=== PATIENT | female | born 1995 | race African-American/Black ===

== ENCOUNTER 2024-07-28 23:55 | Emergency (ER) | payer OTHER ==
--- OUTSIDE RECORDS SUMMARY | 2024-07-29 | XMS REPORT | Continuity of Care Document ---
Author Name Unknown Address [address] [place] [address] [facility] [place] Address [address] [place] [address] Care Team Providers Care Manager Intern Name Role Phone Pcp, Patient Does Not Have A Primary Care Physic manjinder DEYA KHAN Attending Clinician Unavailable CHELSY VALDERRAMA Attending Clinician Unavailab LUPE Haji Attending Clinician UnaDERRICK Garcia Attending Clinician Unavailable LAB47 Attending Clinician Unavailable DEBRA VILLARREAL Attending Clinician Unavailabl e LAB90 Attending Clinician Unavailable Vaccine, Ang Db Cbc Fam Attending Clinician Unav Jennifer Anderson MD Attending Clinician + [phone] JENNIFER PRATT Attending Clinician Avinash brush Doctor Unassigned, [place] Attending Clinician U rosina Palm MD, Lupe Brewer Attending Clinician +[phone] IVELISSE VILLARREAL Attending Clinician Unavail able Syed Carlos Attending Clinician + [phone] [facility] Attending [facility]ician Un available Chelsy Gutierrez Attending Clinician +[phone] Payers Payer Name Policy Type Policy Number Effective Date Expirati on Date Source [facility]VIGATE/POS 3 [id number] 2024 00:00:00 HEALTHSMART-90 DEGREE BENEFIT 2 [id number] 2022 00:00:00 TRS BLUE ESSENTIALS CAPITATED PRIMARY 9 [id number] 2020 00:00:00 BCBS-ESSENTIALS 2 [id number] 2020 00:00:00 AGENCY GENERIC [id number] 2016 00:00:00 AETNA TRS CARE [id number] 2019 00:00:00 Problems Condition Name Condition Details Condition Category Status Onset Date Resolution Date Last Treatment Date Treating Clinician Comments Source Abnormal electrocar diogram (ECG) (EKG) Abnormal electrocar diogram (ECG) (EKG) Disease Active 07-14 00:00: 00 Charlee Seybold - Externa l Family history of CHF (congestiv e heart failure) Family history of CHF (congestiv e heart failure) Disease Active 07-14 00:00: 00 Charlee Seybold - Externa l Gastroesop hageal reflux disease Gastroesop hageal reflux disease Disease Active 07-14 00:00: 00 Charlee Seybold - Externa l Hiatal hernia Hiatal hernia Disease Active 05-19 00:00: 00 Charlee Seybold - Externa l Chronic upper abdominal pain - Not Controlled Chronic upper abdominal pain - Not Controlled Disease Active 12-18 00:00: 00 Charlee Seybold - Externa l Gastritis Gastritis Disease Active Sundeep samantha Seybold - Externa l No known active problems No known active problems Disease [facility] Allergies, Adverse Reactions, Alerts Allergy Name Allergy Type Status Severity Reaction(s) Onset Date Inactive Date Treating Clinician Comments Source NO KNOWN ALLERGIE S Drug Class Active [facility] Social History Social Habit Start Date Stop Date Quantity Comments Source ASSERTION Not Charlee Scott - External Gender identity Kaley Scott - External [facility] Alcoholic beverage intake 2024-07-14 00:00:00 2024-07-14 00:00:00 Current drinker of alcohol (finding) Charlee Scott - External Alcohol intake 2022-12-06 00:00:00 2022-12-06 00:00:00 Current drinker of alcohol (finding) Charlee Scott - External Alcohol Comment 2022-12-06 00:00:00 2022-12-06 00:00:00 occ Charlee Scott - External Tobacco use and exposure 2022-12-06 00:00:00 2022-12-06 00:00:00 Smokeless tobacco non-user Charlee Scott - External Exposure to SARS-CoV-2 (event) 2021-10-20 00:00:00 2021-10-30 14:55:00 Not sure [facility] Sex 2020-12-15 10:06:14 2020-12-15 10:06:14 Female (finding) Charlee Scott - External History of Social function 2020-01-01 00:00:00 2020-01-01 00:00:00 [facility] Sex assigned at 1995 00:00:00 1995 00:00:00 Charlee Scott - External Smoking Status Start Date Stop Date Source Never smoked tobacco Charlee Scott - External Medications Ordered Medication Name Filled Medication Name Start Date Stop Date Current Medication? Ordering Clinician Indication Dosage Frequency Signature (SIG) Comments Components Source Omeprazole 20 MG oral Delayed Release Capsule 07-14 00:00: 00 Yes [id number] 20mg QD Take 1 capsule (20 mg total) by mouth daily. Charlee colbert Pantoprazol e Sodium 40 MG oral Tablet Delayed Response 09-19 00:00: 00 11-30 00:00 :00 No [id number] 40mg QD Take 1 tablet (40 mg total) by mouth daily Charlee colbert Pantoprazol e Sodium 40 MG oral Tablet Delayed Response 2021-05 00:00: 00 Yes [id number] TAKE 1 TABLET BY MOUTH EVERY DAY Charlee colbert Ketorolac Tromethamin e (TORADOL) 30 mg/mL 09-24 21:30: 00 09-24 21:30 :00 No [id number] 30mg Charlee Cardenasbonidaisy methylPREDN ISolone 4 MG oral Tablet Therapy Pack 09-24 00:00: 00 Yes [id number] 1{conor} Take 1 conor by mouth See Admin Instructio ns Use as directed Charlee Cardenasbonidaisy Cyclobenzap rine HCl 5 MG oral Tablet 09-24 00:00: 00 07-14 00:00 :00 No [id number] 5mg [id number] 3D Take 1 tablet (5 mg total) by mouth 3 times daily as needed for muscle spasms Charlee Scott - Externa l methylPREDN ISolone 4 MG oral Tablet Therapy Pack 09-24 00:00: 00 12-06 00:00 :00 No [id number] 1{conor} Take 1 conor by mouth See Admin Instructio ns Use as directed Charlee colbert Pantoprazol e Sodium 40 MG oral Tablet Delayed Response 4-15 00:00: 00 Yes [id number] 40mg Take 1 tablet (40 mg total) by mouth daily Charlee Scott Pantoprazol e Sodium 40 MG oral Tablet Delayed Response 2-15 00:00: 00 Yes [id number] TAKE 1 TABLET BY MOUTH EVERY DAY Charlee Scott No known medications 12-31 12:35: 56 No [facility] MICROGESTIN FE 1/20 1 mg-20 mcg (21)/75 mg (7) tablet 2015-05 006 00:00: 00 12-31 00:00 :00 No Univers [facility] No known medications No Un lucina [facility] Immunizations Ordered Immunization Name Filled Immunization Name Date Status Comments Source SARS-COV-2 COVID-19 PFIZER AYAKA-SUCROSE VACCINE (LEWIS TOP) 2021-10-30 00:00:00 Completed [facility] SARS-COV-2 COVID-19 PFIZER VACCINE 2020-11-03 00:00:00 Completed [facility] SARS-COV-2 COVID-19 PFIZER VACCINE 2020-11-03 00:00:00 Completed [facility] SARS-COV-2 COVID-19 PFIZER VACCINE 2020-10-13 00:00:00 Completed [facility] SARS-COV-2 COVID-19 PFIZER VACCINE 2020-10-13 00:00:00 Completed [facility] Tdap- (Boostrix, Adacel) 2016-02-27 00:00:00 Completed Charlee Seybold - External Tdap- (Boostrix, Adacel) 2016-02-27 00:00:00 Completed Charlee Seybold - External Tdap- (Boostrix, Adacel) 2016-02-27 00:00:00 Completed Charlee Seybold Tdap- (Boostrix, Adacel) 2016-02-27 00:00:00 Completed Charlee Seybold TDAP 2016-02-27 00:00:00 Completed [facility] TDAP 2016-02-27 00:00:00 Completed [facility] TDAP 2016-02-27 00:00:00 Completed [facility] TDAP 2016-02-27 00:00:00 Completed [facility] Meningococcal Vaccine- Conjugate(Menactra) 2011-11-01 00:00:00 Completed Charlee Seybold - External Meningococcal Vaccine- Conjugate(Menactra) 2011-11-01 00:00:00 Completed Charlee Seybold - External Meningococcal Vaccine- Conjugate(Menactra) 2011-11-01 00:00:00 Completed Charlee Seybold Meningococcal Vaccine- Conjugate(Menactra) 2011-11-01 00:00:00 Completed Charlee Cardenasybold Tdap- (Boostrix, Adacel) 2007-02-11 00:00:00 Completed Charlee Seybold - External Tdap- (Boostrix, Adacel) 2007-02-11 00:00:00 Completed Charlee Seybold - External Tdap- (Boostrix, Adacel) 2007-02-11 00:00:00 Completed Charlee Seybold Tdap- (Boostrix, Adacel) 2007-02-11 00:00:00 Completed Charlee Seybold Varicella Vaccine 2005-11-07 00:00:00 Completed Charlee Seybold - External Varicella Vaccine 2005-11-07 00:00:00 Completed Charlee Seybold - External Varicella Vaccine 2005-11-07 00:00:00 Completed Charlee Seybold Varicella Vaccine 2005-11-07 00:00:00 Completed Charlee Collinsold DTaP Unspecified 1997-02-14 00:00:00 Completed Charlee Cardenasybold - External MMR- Measles, Mumps, Rubella 1997-02-14 00:00:00 Completed Charlee ybold - External OPV- Oral Polio Vaccine 1997-02-14 00:00:00 Completed Charlee Cardenasybold - External DTaP Unspecified 1997-02-14 00:00:00 Completed Charlee Seybold - External DTaP Unspecified 1997-02-14 00:00:00 Completed Charlee Cardenasybold MMR- Measles, Mumps, Rubella 1997-02-14 00:00:00 Completed Charlee Seybold - External OPV- Oral Polio Vaccine 1997-02-14 00:00:00 Completed Charlee Seybold - External MMR- Measles, Mumps, Rubella 1997-02-14 00:00:00 Completed Charlee Seybold OPV- Oral Polio Vaccine 1997-02-14 00:00:00 Completed Charlee Cardenasybold DTaP Unspecified 1997-02-14 00:00:00 Completed Charlee Cardenasybold MMR- Measles, Mumps, Rubella 1997-02-14 00:00:00 Completed Charlee Seybold OPV- Oral Polio Vaccine 1997-02-14 00:00:00 Completed Charlee Cardenasybold MMR- Measles, Mumps, Rubella 1995-03-13 00:00:00 Completed Charlee Cardenasybold - External MMR- Measles, Mumps, Rubella 1995-03-13 00:00:00 Completed Charlee Seybold - External MMR- Measles, Mumps, Rubella 1995-03-13 00:00:00 Completed Charlee Cardenasybold MMR- Measles, Mumps, Rubella 1995-03-13 00:00:00 Completed Charlee Cardenasybold DTP- Diphtheria,Tetanus, Pertussis 1994-08-24 00:00:00 Completed Charlee Cardenasybold - External DTP- Diphtheria,Tetanus, Pertussis 1994-08-24 00:00:00 Completed Charlee Cardenasybold - External DTP- Diphtheria,Tetanus, Pertussis 1994-08-24 00:00:00 Completed Charlee Cardenasybold DTP- Diphtheria,Tetanus, Pertussis 1994-08-24 00:00:00 Completed Charlee Cardenasybold DPT/HIB 1994-04-11 00:00:00 Completed Charlee Scott - External Hepatitis B, Unspecified 1994-04-11 00:00:00 Completed Charlee Seybold - External OPV- Oral Polio Vaccine 1994-04-11 00:00:00 Completed Charlee Seybold - External DPT/HIB 1994-04-11 00:00:00 Completed Charlee Collinsold - External Hepatitis B, Unspecified 1994-04-11 00:00:00 Completed Charlee Seybold - External OPV- Oral Polio Vaccine 1994-04-11 00:00:00 Completed Charlee Seybold - External DPT/HIB 1994-04-11 00:00:00 Completed Charlee Scott Hepatitis B, Unspecified 1994-04-11 00:00:00 Completed Charlee Seybold OPV- Oral Polio Vaccine 1994-04-11 00:00:00 Completed Charlee Cardenasybold DPT/HIB 1994-04-11 00:00:00 Completed Charlee Scott Hepatitis B, Unspecified 1994-04-11 00:00:00 Completed Charlee Seybold OPV- Oral Polio Vaccine 1994-04-11 00:00:00 Completed Charlee Collinsold Hib, unspecified formulation 1994-03-13 00:00:00 Completed Charlee Seybold - External Hib, unspecified formulation 1994-03-13 00:00:00 Completed Charlee Seybold - External Hib, unspecified formulation 1994-03-13 00:00:00 Completed Charlee Collinsold Hib, unspecified formulation 1994-03-13 00:00:00 Completed Charlee Seybold DPT/HIB 1993 00:00:00 Completed Charlee Seybold - External OPV- Oral Polio Vaccine 1993 00:00:00 Completed Charlee Seybold - External DPT/HIB 1993 00:00:00 Completed Charlee Seybold - External OPV- Oral Polio Vaccine 1993 00:00:00 Completed Charlee Seybold - External DPT/HIB 1993 00:00:00 Completed Charlee Seybold OPV- Oral Polio Vaccine 1993 00:00:00 Completed Charlee Seybold DPT/HIB 1993 00:00:00 Completed Charlee Scott OPV- Oral Polio Vaccine 1993 00:00:00 Completed Charlee Collinsold DPT/HIB 1993 00:00:00 Completed Charlee Scott - External Hepatitis B, Unspecified 1993 00:00:00 Completed Charlee Scott - External OPV- Oral Polio Vaccine 1993 00:00:00 Completed Charlee Scott - External DPT/HIB 1993 00:00:00 Completed Charlee Scott - External Hepatitis B, Unspecified 1993 00:00:00 Completed Charlee Scott - External OPV- Oral Polio Vaccine 1993 00:00:00 Completed Charlee Scott - External DPT/HIB 1993 00:00:00 Completed Charlee Scott Hepatitis B, Unspecified 1993 00:00:00 Completed Charlee Scott OPV- Oral Polio Vaccine 1993 00:00:00 Completed Charlee Scott DPT/HIB 1993 00:00:00 Completed Charlee Scott Hepatitis B, Unspecified 1993 00:00:00 Completed Charlee Scott OPV- Oral Polio Vaccine 1993 00:00:00 Completed Charlee Scott Hepatitis B, Unspecified 1993 00:00:00 Completed Charlee Scott - External Hepatitis B, Unspecified 1993 00:00:00 Completed Charlee Scott - External Hepatitis B, Unspecified 1993 00:00:00 Completed Charlee Scott Hepatitis B, Unspecified 1993 00:00:00 Completed Charlee Scott DTaP Unspecified Unknown Completed Sundeep Scott - External DTP- Diphtheria,Tetanus, Pertussis Unknown Completed Charlee Scott - External DPT/HIB Unknown Completed Charlee fenton - External Hepatitis B, Unspecified Unknown Completed Charlee Haley External Hib, unspecified formulation Unknown Completed Charlee Haley External Meningococcal Vaccine- Conjugate(Menactra) Unknown Completed Charlee bailey - External MMR- Measles, Mumps, Rubella Unknown Completed Charlee Collinsol d - External OPV- Oral Polio Vaccine Unknown Completed Charlee Cardenasybold - External Tdap- (Boostrix, Adacel) Unknown Completed Charlee Cardenasybold - External Tdap- (Boostrix, Adacel) Unknown Completed Charlee Cardenasybold - External Varicella Vaccine Unknown Completed Donn morales Seybold - External DTaP Unspecified Unknown Completed Sundeep singh Seybold - External DTP- Diphtheria,Tetanus, Pertussis Unknown Completed Charlee Seybold - External DPT/HIB Unknown Completed Charlee Singh bold - External Hepatitis B, Unspecified Unknown Completed Charlee Collinsold - External Hib, unspecified formulation Unknown Completed Charlee Collinsold - External Meningococcal Vaccine- Conjugate(Menactra) Unknown Completed Charlee navabold - External MMR- Measles, Mumps, Rubella Unknown Completed Charlee Collinsol d - External OPV- Oral Polio Vaccine Unknown Completed Charlee Collinsold - External Tdap- (Boostrix, Adacel) Unknown Completed Charlee Collinsold - External Tdap- (Boostrix, Adacel) Unknown Completed Charlee Scott - External Varicella Vaccine Unknown Completed Donn morales Seybold - External TDAP Unknown Completed [facility] TDAP Unknown Completed [facility] Vital Signs Vital Name Observation Time Observation Value Comments S ource Systolic blood pressure 2024-07-14 21:58:00 124 mm[Hg] Charlee Collinso ld - External Diastolic blood pressure 2024-07-14 21:58:00 82 mm[Hg] Charlee Collinso ld - External Heart rate 2024-07-14 21:58:00 98 /min Quynh palmer Seybold - External Body temperature 2024-07-14 21:58:00 36.78 Tamiko Charlee Cardenasybold - External Respiratory rate 2024-07-14 21:58:00 18 /min Charlee ybold - External Body height 2024-07-14 21:58:00 176.5 cm Kaley brandy Seybold - External Body weight 2024-07-14 21:58:00 59.932 kg Kaley ey Seybold - External BMI 2024-07-14 21:58:00 19.23 kg/m2 Kaley brandy Seybold - External Oxygen saturation in Arterial blood by Pulse oximetry 2024-07-14 21:58:00 98 /min Charlee Seybo ld - External Systolic blood pressure 2022-12-06 20:46:00 128 mm[Hg] Charlee Seybo ld - External Diastolic blood pressure 2022-12-06 20:46:00 85 mm[Hg] Charlee Seybo ld - External Heart rate 2022-12-06 20:46:00 115 /min Kelse y Seybold - External Respiratory rate 2022-12-06 20:46:00 16 /min Charlee Seybold - External Body height 2022-12-06 20:46:00 175.3 cm Kaley ey Seybold - External Body weight 2022-12-06 20:46:00 61.417 kg Kaley ey Seybold - External BMI 2022-12-06 20:46:00 20.00 kg/m2 Kaley ey Seybold - External Systolic blood pressure 2022-08-26 20:54:00 124 mm[Hg] Charlee Seybo ld - External Diastolic blood pressure 2022-08-26 20:54:00 88 mm[Hg] Charlee Seybo ld - External Heart rate 2022-08-26 20:54:00 98 /min Sundeepse y Seybold - External Body temperature 2022-08-26 20:54:00 35.44 Tamiko Charlee Seybold - External Respiratory rate 2022-08-26 20:54:00 16 /min Charlee Seybold - External Body height 2022-08-26 20:54:00 175.3 cm Kaley ey Seybold - External Body weight 2022-08-26 20:54:00 57.063 kg Kaley ey Seybold - External BMI 2022-08-26 20:54:00 18.58 kg/m2 Kaley ey Seybold - External Oxygen saturation in Arterial blood by Pulse oximetry 2022-08-26 20:54:00 97 /min Charlee Seybo ld - External Systolic blood pressure 2021-09-24 21:06:00 120 mm[Hg] Charlee Seybo ld Diastolic blood pressure 2021-09-24 21:06:00 80 mm[Hg] Charlee Seybo ld Heart rate 2021-09-24 21:06:00 61 /min Kelse y Seybold Body temperature 2021-09-24 21:06:00 37 Tamiko Charlee Seybold Respiratory rate 2021-09-24 21:06:00 14 /min Charlee Seybold Body height 2021-09-24 21:06:00 175.3 cm Kaley ey Seybold Body weight 2021-09-24 21:06:00 54.885 kg Kaley ey Seybold BMI 2021-09-24 21:06:00 17.87 kg/m2 Kaley ey Seybold Systolic blood pressure 2021-07-05 22:34:00 116 mm[Hg] Charlee Seybo ld Diastolic blood pressure 2021-07-05 22:34:00 77 mm[Hg] Charlee Seybo ld Heart rate 2021-07-05 22:34:00 78 /min Kelse y Seybold Body temperature 2021-07-05 22:34:00 36.61 Tamiko Charlee Cardenasybold Respiratory rate 2021-07-05 22:34:00 14 /min Charlee Cardenasybold Body height 2021-07-05 22:34:00 175.3 cm Kaley ey Seybold Body weight 2021-07-05 22:34:00 52.98 kg Kaley ey Seybold BMI 2021-07-05 22:34:00 17.25 kg/m2 Kaley ey Seybold Systolic blood pressure 2020-01-01 17:25:00 121 mm[Hg] [place] [facility] Diastolic blood pressure 2020-01-01 17:25:00 87 mm[Hg] [facility] Heart [facility] 2020-01-01 17:25:00 78 /[facility] 2020-01-01 17:25:00 16 /min [facility] Body height 2020-01-01 17:25:00 175.3 cm [facility] Body weight 2020-01-01 17:25:00 49.896 kg [facility] BMI 2020-01-01 17:25:00 16.24 kg/m2 [facility] Oxygen saturation in Arterial blood by Pulse oximetry 2020-01-01 17:25:00 98 /min [facility] Procedures Procedure Date / Time Performed Performing Clinicia n Source SARS-COV-2 COVID-19 VACCINE 12 YRS+,0.3ML,IM (PFIZER - [facility]) 2021-10-30 20:08:49 Doctor Unassigned, [place] [facility] CONSENT/REFUSAL FOR DIAGNOSIS AND TREATMENT 2021-10-30 19:57:02 Doctor Unassigned, [place] [facility] XR CHEST 1 VW COVID 2020-01-01 18:07:25 Jus Bautista [facility] Encounters Start Date/Time End Date/Time Encounter Type Admission Type Attending [facility] Care Department Encounter ID Source 2024-08-11 08:00:00 2024-08-11 08:00:00 Outpatient DEYA KHAN [id number] [facility] 2024-07-14 16:00:00 2024-07-14 16:00:00 Outpatient DEYA KHAN [id number] [facility] 2024-07-14 16:00:00 2024-07-14 16:00:00 Outpatient DEYA KHAN [id number] [facility] 2024-07-14 14:00:00 2024-07-14 14:00:00 Outpatient CHELSY VALDERRAMA [id number] [facility] 2023-12-03 00:00:00 2023-12-03 00:00:00 Outpatient LUPE PALM [id number] [facility] 2023-12-01 15:00:00 2023-12-01 15:00:00 Outpatient LUPE PALM [id number] [facility] 2023-12-01 00:00:00 2023-12-01 00:00:00 Outpatient DERRICK OBANDO [id number] [facility] 2023-04-02 00:00:00 2023-04-02 00:00:00 [facility] [id number] [facility] 2022-12-19 16:15:00 2022-12-19 16:15:00 Outpatient CHARLEE LARKIN [id number] [facility] 2022-12-19 15:30:00 2022-12-19 15:30:00 Outpatient [facility]E LARKIN [id number] [facility] 2022-12-06 16:40:00 2022-12-06 16:40:00 Outpatient LABPrem CHARLEE LARKIN [id number] [facility] Seybold 2022-12-06 15:45:00 2022-12-06 15:45:00 Outpatient DEBRA VILLARREAL [id number] [facility] 2022-11-20 00:00:00 2022-11-20 00:00:00 Outpatient NÉSTOR LUPEMELINDA LARKIN [id number] [facility] 2022-11-20 00:00:00 2022-11-20 00:00:00 Outpatient LUPE PALM [id number] [facility] 2022-11-20 00:00:00 2022-11-20 00:00:00 Outpatient LUPE PALM [id number] [facility] 2022-11-11 00:00:00 2022-11-11 00:00:00 Outpatient NÉSTOR LUPE CHARLEE LARKIN [id number] [facility] 2022-10-31 00:00:00 2022-10-31 00:00:00 Outpatient NÉSTOR LUPEMELINDA LARKIN [id number] [facility] 2022-09-19 00:00:00 2022-09-19 00:00:00 Outpatient DERRICK OBANDO [id number] [facility] 2022-09-11 00:00:00 2022-09-11 00:00:00 Outpatient PREDERRICK SANFORD [id number] Charlee Seybold 2022-08-26 16:35:00 2022-08-26 16:35:00 Outpatient LABMarco LARKIN [id number] [facility] 2022-08-26 16:00:00 2022-08-26 16:00:00 Outpatient LU[facility] PAL[facility] [id number] [facility] 2022-07-31 15:15:00 2022-07-31 15:15:00 Outpatient CHERELLE, DEBRA LARKIN [id number] [facility] 2022-07-31 00:00:00 2022-07-31 00:00:00 Outpatient LUPE PALM [id number] [facility] 2022-02-20 15:30:00 2022-02-20 15:30:00 Outpatient CHERELLE DEBRA LARKIN [id number] [facility] 2022-02-19 15:15:00 2022-02-19 15:15:00 Outpatient CHERELLE DEBRA LARKIN [id number] [facility] 2021-12-03 00:00:00 2021-12-03 00:00:00 Outpatient LUPE PALM [id number] [facility] 2021-11-30 00:00:00 2021-11-30 00:00:00 Outpatient LUPE PALM [id number] [facility] 2021-10-30 15:00:00 2021-10-30 15:10:00 Imm/Inj Visit Vaccine, Ang Db Cbc Jennifer Caba [facility] 1..840.114 [id number] [facility] 2021-10-30 15:00:00 2021-10-30 15:00:00 Outpatient JENNIFER MARTINEZ [facility] [id number] [facility] 2021-10-30 00:00:00 2021-10-30 00:00:00 Outpatient LUPE PALM [id number] [facility] 2021-10-30 00:00:00 2021-10-30 00:00:00 Orders Only Doctor Unassigned, [place] [facility] 1..840.114 [id number] [facility] 2021-10-26 00:00:00 2021-10-26 00:00:00 Outpatient LUPE PALMSEY [facility] [id number] [facility] 2021-10-26 00:00:00 2021-10-26 00:00:00 Outpatient LUPE PALM CHARLEE LARKIN [id number] [facility] 2021-10-26 00:00:00 2021-10-26 00:00:00 Outpatient LUPE PALM CHARLEE LARKIN [id number] [facility] 2021-10-22 00:00:00 2021-10-22 00:00:00 Outpatient LUPE PALM CHARLEE LARKIN [id number] [facility] 2021-09-24 16:00:00 2021-09-24 16:15:00 [facility] [place] [place] 1.2.840.114 [id number] [facility] 2021-07-05 16:15:00 2021-07-05 16:30:00 Office Visit Lupe Palm [facility] [place] [id number] [facility] 2021-07-05 00:00:00 2021-07-05 00:00:00 Outpatient CHARLEE LARKIN [id number] [facility] 2021-07-03 00:00:00 2021-07-03 00:00:00 Outpatient LUPE PALM CHARLEE LARKIN [id number] [facility] 2020-12-18 16:15:00 2020-12-18 16:15:[facility] [id number] [facility] 2020-12-18 15:30:00 2020-12-18 15:30:00 Outpatient LUPE PALM CHARLEE LARKIN [id number] [facility] 2020-12-15 00:00:00 2020-12-15 00:00:00 Outpatient LJ PALMMELINDA LARKIN [id number] [facility] 2020-11-03 15:10:00 2020-11-03 15:10:00 Outpatient R IVELISSE VILLARREAL [facility] [id number] [facility] 2020-10-13 15:30:00 2020-10-13 15:30:00 Outpatient [facility] [id number] [facility] 2020-01-25 00:00:00 2020-01-25 00:00:00 Patient Secure Msg Doctor Unassigned, [place] [facility] [id number] [facility] 2020-01-02 00:00:00 2020-01-02 00:00:00 Patient Secure Msg Doctor Unassigned, [place] [facility] [id number] [facility] 2020-01-01 13:00:00 2020-01-01 23:59:00 Hospital Encounter Michele Orlandomodesta [facility] [id number] [facility] 2020-01-01 12:19:16 2020-01-01 13:14:52 Urgent Care Provider, [facility] Urgent Care Chelsy Baez [facility] Office [facility] [id number] [facility] 2020-01-01 12:20:00 2020-01-01 12:20:00 Outpatient R [facility] [id number] [facility] Results Test Description Test Time Test Comments Results Resul t Comments Source XR CHEST 1 VW COVID 2019-12-18 5 20:39:34 No acute intrathoracic abnormality. Disclaimer: Generally, the findings on chest imaging in COVID-19 are notspecific, and overlap with other infections, including influenza, H1N1,SARS and MERS.According to the Centers for Disease Control (CDC) and the [employer], viral testing remains the only specific method of diagnosiseven if CXR or CT findings are suggestive of COVID-19. Preliminary Report Dictated by Resident: Grant Link MD., have reviewed this study and agree withthe above report.PROCEDURE: CHEST XRAY , CLINICAL INDICATION: chest tightness COMPARISON: None FINDINGS: Lungs: No focal consolidation, pleural effusion, or pneumothorax. Pleura: No pleural effusion or pneumothorax is seen. The heart is normal insize. No acute bony abnormality. Remote right 10th and 11th posterior ribfracture deformity. Wymb, Radiant Results Inft User - 01/01/2020 3:40 PM CDTPROCEDURE: CHEST XRAY , CLINICAL INDICATION: chest tightness COMPARISON: NoneFINDINGS:Lungs : No focal consolidation, pleural effusion, or pneumothorax.Pleur a: No pleural effusion or pneumothorax is seen. The heart is normal insize.No acute bony abnormality. Remote right 10th and 11th posterior ribfracture deformity.IMPRESSI ONNo acute intrathoracic abnormality.Discla rema: Generally, the findings on chest imaging in COVID-19 are notspecific, and overlap with other infections, including influenza, H1N1,SARS and MERS.According to the Centers for Disease Control (CDC) and the [employer], viral testing remains the only specific method of diagnosiseven if CXR or CT findings are suggestive of COVID-19. Preliminary Report Dictated by Resident: Grant Palmer MD., have reviewed this study and agree withthe above report. [facility] Notes Date/Time Note Provider Source 2024-07-14 16:05:17 Chief Complaint Patient presents with Chest Pain Chest pains to left side off and Friday. Was on Protonix before for the same symptoms Jen Anaya LVN [facility] 2022-12-06 15:50:06 Formatting of this n ote is different from the original. Chief Complaint Patient presents with Well Woman Exam Thi Vieira is here today for her Well Woman Exam. The patient's last pap smear was unsure, maybe 2017 and her last mammogram was never. T [facility]
[2024-07-29 02:25] LABS: Absolute Basophils 0.1 K/uL (0-0.5); Absolute Eosinophils 0.1 K/uL (0-0.5); Absolute Lymphocytes (CBC) 1.8 K/uL (0.7-4.9); Absolute Monocytes 0.6 K/uL (0.1-1.3); Absolute Neutrophil 6.9 K/uL (1.8-8.0); Basophils % 0.6 % (0-1.3); Eosinophils % 0.8 % (0-4.4); Hematocrit 43.6 % (36.0-45.0); Hemoglobin 14.6 g/dL (12.0-15.0); Lymphocytes % 19.4 % (15.3-44.8); MCH 28.2 pg (27.0-35.0); MCHC 33.5 g/dL (32.0-36.0); MPV 9.3 fL (7.6-11.3); Neutrophils % 73.2 % (41.7-73.7); Platelets 214 thou/uL (152-406); RBC Red Blood Cell Count 5.19 M/uL (3.86-4.86); Red Cell Distribution Width 13.4 % (12.1-15.2)
[2024-07-29 02:29] LABS: ALT/SGPT 21 U/L (13-56); AST/SGOT 17 U/L (15-37); Albumin 3.8 g/dL (3.4-5.0); Alkaline Phosphatase 88 U/L (45-117); Anion Gap 7.4 mEq/L (5.0-15.0); BUN Blood Urea Nitrogen 9 mg/dL (7-18); Bicarbonate 26 mEq/L (21-32); Bilirubin Total 0.7 mg/dL (0.2-1.0); Glomerular Filtration Rate 117 ml/min (=/>90); Glucose Level 91 mg/dL (74-106); Magnesium 2.1 mg/dL (1.6-2.4); NT PRO-BNP 34 pg/mL (<125); Potassium 3.4 mEq/L (3.5-5.1); Protein, Total 7.8 g/dL (6.4-8.2); Sodium Level 137 mEq/L (136-145)
[2024-07-29 02:35] LABS: Bilirubin Direct < 0.2 mg/dL (0-0.2); Bilirubin Indirect, Calculated 0.5 mg/dL (0.2-0.8); C-Reactive Protein < 2.90 mg/L (<3.00); Troponin High Sensitivity < 3.0 pg/mL (<58.9)
--- NOTE | 2024-07-29 05:05 | RAD REPORT ---
PROCEDURE: XR Chest, 1 View CLINICAL INDICATION: The patient is 29 years old and is Female; Chest pain. TECHNIQUE: Frontal view of the chest. COMPARISON: None. FINDINGS: LUNGS: No discrete focal consolidation. PLEURAL SPACE: No appreciable pleural effusion or pneumothorax. MEDIASTINUM: Unremarkable cardiomediastinal contour. BONES/JOINTS: No acute osseous abnormality. IMPRESSION: No acute cardiopulmonary abnormality. Electronically signed by: Ludin Lutz MD 07/29/2024 02:32 AM CDT RP Due to temporary technical issues with the [employer] reporting system, reports are being adilene d by the in-house radiologist without review as a courtesy to ensure prompt reporting the interpreting radiologist is fully responsible for the content of the report. Transcribed Date/Time: 07/29/2024 5:04 AM
--- NOTE | 2024-07-29 05:12 | EDPHYS ---
Physician Documentation [facility] Name: Thi Vieira Age: 29 yrs Sex: Female : 1995 Arrival Date: 07/28/2024 Time: 23:55 Bed 2 Private MD: ED Physician Kashif Mobley HPI: 07/29 00:01 This 29 yrs old Black Female presents to ER via Unassigned with complaints of Arm Pain, sp4 Neck and Upper Back Pain, Leg Pain, TINGLING IN LEFT SIDE EXT. 05:25 Patient is a pleasant young female 29 years of age presents with complaint of numbness sp4 tingling mostly to the left side of the body. Reported some additional palpitations.. 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 - Infectious Disease History:: Denies. - Social history:: Smoking status: Patient denies any tobacco usage or history of. - Family history:: not pertinent. ROS: 05:25 Constitutional: Negative for fever, chills, and weight loss, positive diffuse numbness sp4 and tingling left greater than right, positive palpitations 05:25 All other systems are negative, Exam: 05:25 Constitutional: This is a well developed, well nourished patient who is awake, alert, sp4 and in no acute distress. Head/Face: Normocephalic, atraumatic. Eyes: Pupils equal round and reactive to light, extra-ocular motions intact. Lids and lashes normal. Conjunctiva and sclera are not injected. Cornea within normal limits. Periorbital areas with no swelling, redness, or edema. ENT: Nares patent. No nasal discharge, no septal abnormalities noted. Tympanic membranes are normal and external auditory canals are clear. Oropharynx with no redness, swelling, or masses, exudates, or evidence of obstruction, uvula midline. Mucous membranes moist. Neck: Trachea midline, no thyromegaly or masses palpated, and no cervical lymphadenopathy. Supple, full range of motion without nuchal rigidity, or vertebral point tenderness. Chest/axilla: Normal chest wall appearance and motion. Nontender with no deformity. No lesions are appreciated. Cardiovascular: Regular rate and rhythm with a normal S1 and S2. No gallops, murmurs, or rubs. Normal PMI, no JVD. No pulse deficits. Respiratory: Lungs have equal breath sounds bilaterally, clear to auscultation and percussion. No rales, rhonchi or wheezes noted. No increased work of breathing, no retractions or nasal flaring. Abdomen/GI: Soft, with normal bowel sounds. No distension or tympany. No guarding or rebound. No evidence of tenderness throughout. Back: No spinal tenderness. No costovertebral tenderness. Skin: Warm, dry with normal turgor. Normal color with no rashes, no lesions, and no evidence of cellulitis. MS/ Extremity: Pulses equal, no cyanosis. Neurovascular intact. Full, normal range of motion. Neuro: Awake and alert, GCS 15, oriented to person, place, time, and situation. Cranial nerves II-XII grossly intact. Motor strength 5/5 in all extremities. Sensory grossly intact. Psych: Awake, alert, with orientation to person, place and time. Behavior, mood, and affect are within normal limits 05:25 ECG was reviewed by the Attending Physician. EKG 0206 normal sinus rhythm with sinus arrhythmia. Vital Signs: 00:10 BP 126 / 85; Pulse 93; Resp 17 S; Temp 97.6(T); Pulse Ox 100% on R/A; Weight 58.97 kg; ha1 Height 5 ft. 9 in. ; 02:00 BP 121 / 85; Pulse 74; Resp 18; Pulse Ox 99% on R/A; al5 02:30 BP 114 / 76; Pulse 64; Resp 16; Pulse Ox 100% on R/A; al5 03:00 BP 115 / 77; Pulse 70; Resp 15; Pulse Ox 100% on R/A; al5 03:30 BP 117 / 82; Pulse 68; Resp 15; Pulse Ox 100% ; al5 04:00 BP 114 / 78; Pulse 66; Resp 17; Pulse Ox 100% on R/A; al5 04:30 BP 115 / 81; Pulse 70; Resp 14; Pulse Ox 100% on R/A; al5 05:00 BP 113 / 82; Pulse 68; Resp 15; Pulse Ox 100% ; al5 00:10 Body Mass Index 19.20 (58.97 kg, 175.26 cm) ha1 Marc Coma Score: 05:25 Eye Response: spontaneous(4). Motor Response: obeys commands(6). Verbal Response: sp4 oriented(5). Total: 15. MDM: 02:06 Differential diagnosis: contusion, abrasion, tendonitis, Acute anxiety. Data reviewed: sp4 vital signs, nurses notes, lab test result(s), EKG, radiologic studies, plain films. ED course: PROCEDURE: XR Chest, 1 View CLINICAL INDICATION: The patient is 29 years old and is Female; Chest pain. TECHNIQUE: Frontal view of the chest. COMPARISON: None. FINDINGS: LUNGS: No discrete focal consolidation. PLEURAL SPACE: No appreciable pleural effusion or pneumothorax. MEDIASTINUM: Unremarkable cardiomediastinal contour. BONES/JOINTS: No acute osseous abnormality. IMPRESSION: No acute cardiopulmonary abnormality. 03:56 Medical Screening Exam initiated sp4 05:29 ED course: Workup today is unremarkable. Patient stable for discharge home.. sp4 07/29 00:52 Order name: Basic Metabolic Panel; Complete Time: 05:05 sp4 07/29 00:52 Order name: CBC with Diff; Complete Time: 03:27 sp4 07/29 00:52 Order name: LFT's; Complete Time: 05:05 sp4 07/29 00:52 Order name: Magnesium; Complete Time: 05:05 sp4 07/29 00:52 Order name: NT PRO-BNP; Complete Time: 05:05 sp4 07/29 00:52 Order name: Troponin HS; Complete Time: 05:05 sp4 07/29 00:53 Order name: Test, Serum; Complete Time: 03:27 sp4 07/29 00:53 Order name: CRP; Complete Time: 05:05 sp4 07/29 04:18 Order name: T4 Free; Complete Time: 05:05 EDMS 07/29 04:18 Order name: Thyroid Stimulating Hormone; Complete Time: 05:05 EDMS 07/29 00:52 Order name: XRAY Chest (1 view) sp4 07/29 00:52 Order name: EKG; Complete Time: 00:53 sp4 07/29 00:52 Order name: Cardiac monitoring; Complete Time: 01:55 sp4 07/29 00:52 Order name: EKG - Nurse/Tech; Complete Time: 02:05 sp4 07/29 00:52 Order name: IV Saline Lock; Complete Time: :55 sp4 07/29 00:52 Order name: Labs collected and sent; Complete Time: :55 sp4 07/29 00:52 Order name: O2 Per Protocol; Complete Time: :55 sp4 07/29 00:52 Order name: O2 Sat Monitoring; Complete Time: : sp4 EC:06 Rate is 69 beats/min. Rhythm is irregular, Sinus arrythmia. QRS [place] is Normal. [place] sp4 interval is normal. QRS interval is normal. QT interval is normal. No Q waves. T waves are Normal. No ST changes noted. Clinical impression: Normal ECG. Interpreted by me. Reviewed by me. Administered Medications: No medications were administered Disposition Summary: 07/29/24 05:12 Discharge Ordered Notes: Location: Home sp4 Problem: new sp4 Symptoms: have improved sp4 Condition: Stable sp4 Diagnosis - Acute Stress Reaction, Acute Anxiety sp4 Followup: sp4 - With: Private Physician - When: 7 - 10 days - Reason: Recheck today's complaints Discharge Instructions: - Discharge Summary Sheet sp4 - Hyperventilation sp4 Forms: - Patient Portal Instructions sp4 Signatures: Dispatcher [employer] Aparna Jara RN RN ha1 Kashif Mobley MD MD sp4 Corrections: (The following items were deleted from the chart) 00:42 00:41 PMHx: None; ha1 ha1 00:53 00:53 BASIC METABOLIC PANEL+C.LAB.BRZ ordered. EDMS EDMS 00:53 00:53 CBC+H.LAB.BRZ ordered. EDMS EDMS 00:53 00:53 HEPATIC FUNCTION+C.LAB.BRZ ordered. EDMS EDMS 00:53 00:53 MAGNESIUM+C.LAB.BRZ ordered. EDMS EDMS 00:53 00:53 PROBNP+C.LAB.BRZ ordered. EDMS EDMS 00:53 00:53 Troponin High Sensitivity+C.LAB.BRZ ordered. EDMS EDMS
--- NOTE | 2024-07-29 05:12 | ER ---
Nurse's Notes [facility] Name: Thi Vieira Age: 29 yrs Sex: Female : 1995 Arrival Date: 07/28/2024 Time: 23:55 Bed 2 Private MD: Diagnosis: Acute Stress Reaction, Acute Anxiety Presentation: 07/29 00:10 Chief complaint: Patient states: LEFT ARM FEELS NUMB AND TINGLING, NECK PAIN. ha1 00:10 Coronavirus screen: Client denies travel out of the [place] in the last 14 days. Ebola ha1 Screen: No symptoms or risks identified at this time. Initial Sepsis Screen: Does the patient meet any 2 criteria? No. Patient's initial sepsis screen is negative. Does the patient have a suspected source of infection? No. Patient's initial sepsis screen is negative. Risk Assessment: Do you want to hurt yourself or someone else? Patient reports no desire to harm self or others. Onset of symptoms was July 29, 2024. 00:10 Method Of Arrival: Ambulatory ha1 00:10 Acuity: BRAD 3 ha1 Triage Assessment: 00:15 General: Appears comfortable, Behavior is calm, cooperative. Pain: Complains of pain in ha1 left arm Pain does not radiate. Pain currently is 5 out of 10 on a pain scale. Neuro: Level of Consciousness is awake, alert, obeys commands, Oriented to person, place, time, situation. Neuro: Reports numbness in left arm. Cardiovascular: Capillary refill < 3 seconds Patient's skin is warm and dry. Respiratory: Airway is patent Respiratory effort is even, unlabored, Respiratory pattern is regular, symmetrical. 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 - Infectious Disease History:: Denies. - Social history:: Smoking status: Patient denies any tobacco usage or history of. - Family history:: not pertinent. Screenin:57 [facility] ED Fall Risk Assessment (Adult) History of falling in the last 3 months, al5 including since admission No falls in past 3 months (0 pts) Confusion or Disorientation No (0 pts) Intoxicated or Sedated No (0 pts) Impaired Gait No (0 pts) Mobility Assist Device Used No (0 pt) Altered Elimination No (0 pt) Score/Fall Risk Level 0 - 2 = Low Risk Oriented to surroundings, Maintained a safe environment, Hourly rounding (assess needs \T\ fall precautionary measures) done. Abuse screen: Denies threats or abuse. Denies injuries from another. Nutritional screening: No deficits noted. Tuberculosis screening: No symptoms or risk factors identified. Assessment: 01:56 Reassessment: assumed care of patient at this time. General: Behavior is calm, al5 cooperative. Pain: Complains of pain in neck and left arm. Neuro: Level of Consciousness is awake, alert, obeys commands, Oriented to person, place, time, situation. Cardiovascular: Capillary refill < 3 seconds Patient's skin is warm and dry. Respiratory: Airway is patent Respiratory effort is even, unlabored, Respiratory pattern is regular, symmetrical. GI: No signs and/or symptoms were reported involving the gastrointestinal system. : No signs and/or symptoms were reported regarding the genitourinary system. EENT: No signs and/or symptoms were reported regarding the EENT system. Derm: Skin is intact, is healthy with good turgor, Skin is pink, warm \T\ dry. normal. Musculoskeletal: Reports pain in neck and left arm. 03:46 Reassessment: Patient appears in no apparent distress at this time. Patient and/or al5 family updated on plan of care and expected duration. Pain level reassessed. Patient is alert, oriented x 3, equal unlabored respirations, skin warm/dry/pink. Patient states feeling better. 05:18 Reassessment: Patient appears in no apparent distress at this time. No changes from al5 previously documented assessment. Patient and/or family updated on plan of care and expected duration. Pain level reassessed. Patient is alert, oriented x 3, equal unlabored respirations, skin warm/dry/pink. Vital Signs: 00:10 BP 126 / 85; Pulse 93; Resp 17 S; Temp 97.6(T); Pulse Ox 100% on R/A; Weight 58.97 kg; ha1 Height 5 ft. 9 in. ; 02:00 BP 121 / 85; Pulse 74; Resp 18; Pulse Ox 99% on R/A; al5 02:30 BP 114 / 76; Pulse 64; Resp 16; Pulse Ox 100% on R/A; al5 03:00 BP 115 / 77; Pulse 70; Resp 15; Pulse Ox 100% on R/A; al5 03:30 BP 117 / 82; Pulse 68; Resp 15; Pulse Ox 100% ; al5 04:00 BP 114 / 78; Pulse 66; Resp 17; Pulse Ox 100% on R/A; al5 04:30 BP 115 / 81; Pulse 70; Resp 14; Pulse Ox 100% on R/A; al5 05:00 BP 113 / 82; Pulse 68; Resp 15; Pulse Ox 100% ; al5 00:10 Body Mass Index 19.20 (58.97 kg, 175.26 cm) ha1 [place] Coma Score: 05:25 Eye Response: spontaneous(4). Motor Response: obeys commands(6). Verbal Response: sp4 oriented(5). Total: 15. ED Course: 07/28 23:59 Patient arrived in ED. [email or web address] 07/29 00:01 Kashif Mobley MD is Attending Physician. sp4 00:18 Triage completed. ha1 01:37 XRAY Chest (1 view) In Process Unspecified. EDMS 01:55 Teresa Cleaning, LAURA is Primary Nurse. al5 01:55 Arm band placed on right wrist. Patient placed in the treatment room, in view of staff al5 members, on environmental monitoring technician, on pulse oximetry. 01:57 Patient has correct armband on for positive identification. Bed in low position. Call al5 light in reach. Side rails up X 1. Provided Education on: plan of care. 01:57 No provider procedures requiring assistance completed. Inserted saline lock: 22 gauge al5 in right antecubital area, using aseptic technique. Blood collected. Flushed with 10 mL NS. 05:19 IV discontinued, intact, bleeding controlled, No redness/swelling at site. Pressure al5 dressing applied. Administered Medications: No medications were administered Medication: 01:57 VIS not applicable for this client. al5 Outcome: 05:12 Discharge ordered by . sp4 05:19 Discharged to home ambulatory, with family, al5 05:19 Condition: good 05:19 Discharge instructions given to patient, Instructed on discharge instructions, follow up and referral plans. Demonstrated understanding of instructions, follow-up care, 05:20 Patient left the ED. al5 Signatures: Dispatcher [employer] EDMS Mariposa Perez [email or web address] Aparna Parisi RN RN 1 Kashif oMbley MD MD sp4 Teresa Cleaning RN RN al5 Corrections: (The following items were deleted from the chart) 00: 00:03 Chief complaint: Patient states: started having chest pain about an hour and a ha1 half ago, my chest pain stopped but now I am having neck and back pain [facility] 00:03 Coronavirus screen: Client denies travel out of the [place] in the last 14 days. [place] [id number] 00:03 Ebola Screen: No symptoms or risks identified at this time. [place] [id number] 00:03 Initial Sepsis Screen: Does the patient meet any 2 criteria? No. Patient's [facility] initial sepsis screen is negative. Does the patient have a suspected source of infection? No. Patient's initial sepsis screen is negative. [facility] 00:03 Risk Assessment: Do you want to hurt yourself or someone else? Patient reports no [facility] desire to harm self or others. [facility] 00:03 Onset of symptoms was July 29, 2024 [facility] 00:03 Method Of Arrival: Wheelchair [facility]:19 00:03 BP 163 / 79; Pulse 60bpm; Resp 17bpm; Spontaneous; Pulse Ox 98% RA; Temp 97.9F 1 Tympanic; 92.99 kg; Height 5 ft. 10 in.; BMI: 29.4; 19 00:03 Acuity: BRAD 2 [facility] 00:42 00:41 PMHx: None; [place] [id number] 05:19 03:46 Reassessment: Patient appears in no apparent distress at this time. Patient al5 and/or family updated on plan of care and expected duration. Pain level reassessed. Patient is alert, oriented x 3, equal unlabored respirations, skin warm/dry/pink. al5
[2024-07-29 05:24] VITALS: TEMP 97.6
[2024-07-29 05:26] VITALS: O2SAT 100
[2024-07-29 05:32] VITALS: BP 113/82
--- NOTE | 2024-07-30 14:42 | EKG ---
Test Date: 2024-07-29 Test Time: 02:06:46 Golf Ball Cover Treater: RADHA MEASUREMENT RESULTS: Intervals: Rate: 69 LA: 146 QRSD: 80 QT: 386 QTc: 413 [place]: P: 76 LA: 146 QRS: 76 T: 45 INTERPRETIVE STATEMENTS: Sinus rhythm with marked sinus arrhythmia Biatrial enlargement Abnormal ECG No previous ECG available for comparison Electronically Signed On 07-30-24 14:40:15 CDT by Sachin Castillo
== END 2024-07-29 05:20 | disposition home or self-care (01) ==
LOC: ER 23:55
DX: F43.9 Reaction to severe stress, unspecified (principal); F41.9 Anxiety disorder, unspecified
CPT/HCPCS: 36415; 71045; 80048; 80076; 83735; 83880; 84439; 84443; 84484; 84703; 85025; 86140; 93005; 99284